=== PATIENT | male | born 1980 | race Caucasian/White ===

== ENCOUNTER 2020-04-10 19:33 | Inpatient (IN) | payer SELFPAY ==
[2020-04-10] VITALS (7 sets, daily range): BP systolic 140–172; BP diastolic 83–105; PULSE 87–141; RESP 20–26; TEMP 36.6–37.5; O2SAT 93–100
--- NOTE | ~2020-04-10 | XR_ITS ---
EXAMINATION: XR wrist LT 2V DATE: 04/11/2020 01:47 INDICATION: Left wrist pain and swelling post fall TECHNIQUE: Posteroanterior, ulnar deviation, oblique, and lateral views of the left wrist were obtain ed. COMPARISON: none FINDINGS: Alignment is normal. No fracture. Joint spaces are normal. Soft tissue swelling along the dorsal and ulnar side of the distal forearm. IMPRESSION: 1. No osseous abnormality. Reviewed, dictated and finalized at location A. IMPRESSION: 1. No osseous abnormality.
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
--- NOTE | ~2020-04-10 | XR_ITS ---
XR chest 1V portable DATE: 04/10/2020 21:56 INDICATION: Transient alteration of awareness TECHNIQUE: Portable AP chest on 04/10/2020 at 2156 hours COMPARISON: None FINDINGS: Normal heart size. No hilar or mediastinal enlargement. No pulmonary infiltrate or consolid ation, pleural effusion or pulmonary vascular congestion or pneumothorax. IMPRESSION: No active cardiopulmonary disease Reviewed, dictated and finalized at location A.
--- NOTE | 2020-04-10 19:58 | ECG_ITS ---
Measurements Intervals [place] Rate: 87 P: 58 WA: 150 QRS: 57 QRSD: 90 T: 42 QT: 373 QTc: 449 Interpretive Statements SINUS RHYTHM ST ELEVATION IN ANTERIOR LEADS- PROBABLY EARLY REPOLARIZATION BORDERLINE ECG Electronically Signed On 04-11-2020 7:11:04 CDT by Ash Griffin D.O.
--- NOTE | 2020-04-10 19:58 | PC.NURSE ---
Patient continues to flail around on stretcher despite repeated requests for him to calm down. Unable to get blood pressure at this time.
--- NOTE | 2020-04-10 20:00 | PC.NURSE ---
Patient began yelling that he did not want to live and that he had nothing to live for. He states I drink every night to get the courage to fucking kill myself. ED Charge and EDP aware.
[2020-04-10 20:03] LABS: Basophils Absolute Auto 0.1 K/mm3 (0.0-0.1); Basophils Percent Auto 0.7 % (0.2-1.2); Eosinophils Absolute Auto 0.5 K/mm3 (0-0.3); Eosinophils Percent Auto 3.4 % (0-4.4); Hematocrit 46.8 % (42.0-52.0); Immature Granulocyte Absolute 0.11 K/mm3 (0.00-0.031); Immature Granulocyte Percent A 0.7 % (0-0.5); Lymphocytes Percent Auto 26.9 % (18.3-44.2); Mean Corpuscular HGB Conc 34.2 g/dl (32-36); Mean Corpuscular Hemoglobin 31.1 pg (26-34); Mean Corpuscular Volume 90.9 fl (80-100); Mean Platelet Volume 10.5 fl (7.4-10.4); Monocytes Percent Auto 6.3 % (2.6-8.5); Neutrophils Absolute Auto 9.9 K/mm3 (1.3-6.7); Platelet Count Result 257 k/mm3 (150-375); Red Blood Count 5.15 M/mm3 (4.6-6.20)
[2020-04-10 20:13] LABS: Alanine Aminotransferase 26 U/L (4-50); Albumin Level 5.1 g/dL (3.5-5.1); Alkaline Phosphatase 81 U/L (38-126); Aspartate Amino Transferase 50 U/L (17-59); Bilirubin,Total 0.8 mg/dL (0.2-1.3); Blood Urea Nitrogen 13 mg/dL (9-20); Calcium 9.6 mg/dL (8.4-10.2); Carbon Dioxide 17 mmol/L (22-30); Chloride 107 mmol/L (98-107); Estimated CRCL calculation 81 ml/min; Estimated Glomerular Filt Rate 57; Glucose 72 mg/dL (75-110); Sodium 142 mmol/L (137-145)
[2020-04-10 20:14] LABS: Ethanol 49 mg/dL (<10)
[2020-04-10 20:18] LABS: Add Urine Microscopic? YES; Appearance Urine Clear (Clear); Bacteria Urine Trace /hpf; Bilirubin Urine Negative (Negative); Blood Urine Negative (Negative); Color Urine Amber (Yellow); Glucose Urine UA Negative (Negative); Ketones Urine Trace mg/dL (Negative); Leukocyte Esterase Ur Negative LEU/UL (Negative); Mucus Urine Few /lpf; Nitrate Urine Negative (Negative); Protein Urine 1+ mg/dL (Negative)
[2020-04-10 20:19] LABS: Specific Grav Ur 1.033 (1.001-1.035)
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
[2020-04-10 20:28] LABS: Barbiturate Screen Urine Negative (Negative); Benzodiazepines Screen Urine Negative (Negative); Cannabinoid Screen Urine Negative (Negative); Cocaine Screen Urine Negative (Negative); Methadone Screen Urine Negative (Negative); Opiate Screen Urine Negative (Negative); Phencyclidine Screen Urine Negative (Negative)
[2020-04-10] MEDS: KETAMINE HCL 500 MG/10 ML VIAL 220 MG IV PUSH (20:38)
[2020-04-10 20:42] LABS: Amphetamine Screen Urine Positive (Negative)
--- NOTE | 2020-04-10 21:38 | PC.NURSE ---
Patient to CT with assistance of wireless field technician. Accompanied by PD. Restraints were repositioned to address comfort.
[2020-04-10 22:14] LABS: Lactic Acid Reflex 1.1 mmol/L (0.7-2.1)
[2020-04-10 22:46] LABS: Creatine Kinase 1198 U/L (55-170)
[2020-04-11] VITALS (18 sets, daily range): BP systolic 114–177; BP diastolic 63–106; PULSE 62–99; RESP 12–25; TEMP 36.8; O2SAT 93–100; BMI 25.0
--- NOTE | 2020-04-11 01:02 | ADMGEN ---
This patient, Leonardo Rawls, was admitted to Intensive Care Unit-10. Patient/family oriented to hospital policies and general routines including ID bracelet, bed and alarms, visiting hours, pain management, procedures, bathroom and other care routines, personal items, smoking policy, room service/diet, and visiting hours. Valuables list has been completed. Information on how to activate the Rapid Response Team has been discussed. Patient/Family are encouraged to report perceived risks to care and to ask questions if they do not understand what they are told or what they should do.
[2020-04-11] MEDS: SODIUM CHLORIDE 0.9% IV 1,000 ML 125 ML IV CONT (01:31)
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
[2020-04-11 04:27] LABS: Blood Urea Nitrogen 15 mg/dL (9-20); Calcium 8.5 mg/dL (8.4-10.2); Carbon Dioxide 29 mmol/L (22-30); Chloride 106 mmol/L (98-107); Estimated CRCL calculation 90 ml/min; Estimated Glomerular Filt Rate > 60; Glucose 97 mg/dL (75-110); Sodium 140 mmol/L (137-145)
[2020-04-11] MEDS: hydrALAZINE HCL 20 MG/ML VIAL 10 MG IV PUSH ×2 (04:29→08:06)
[2020-04-11 05:09] LABS: Creatine Kinase 2638 U/L (55-170)
[2020-04-11] MEDS: LACTATED RINGERS 1,000 ML 999 ML IV CONT (08:05)
[2020-04-11] MEDS: SODIUM CHLORIDE 0.9% IV 1,000 ML 150 ML IV CONT ×3 (09:46→22:27)
[2020-04-11 11:57] LABS: Basophils Percent Auto 0.3 % (0.2-1.2); Eosinophils Absolute Auto 0.4 K/mm3 (0-0.3); Eosinophils Percent Auto 3.2 % (0-4.4); Hematocrit 40.9 % (42.0-52.0); Hemoglobin 13.9 g/dL (14.0-18.0); Immature Granulocyte Absolute 0.04 K/mm3 (0.00-0.031); Immature Granulocyte Percent A 0.3 % (0-0.5); Lymphocytes Absolute Auto 2.58 K/mm3 (0.9-3.2); Mean Corpuscular Volume 91.1 fl (80-100); Mean Platelet Volume 10.4 fl (7.4-10.4); Monocytes Absolute Auto 0.9 K/mm3 (0.1-0.6); Monocytes Percent Auto 6.8 % (2.6-8.5); Neutrophils Absolute Auto 9.6 K/mm3 (1.3-6.7); Neutrophils Percent Auto 70.4 % (45.5-73.1); Platelet Count Result 163 k/mm3 (150-375); Red Blood Count 4.49 M/mm3 (4.6-6.20); Red Cell Distribution Width 13.1 % (11.5-14.5); White Blood Count 13.6 K/mm3 (4.5-10.0)
[2020-04-11 12:33] LABS: Creatine Kinase 3135 U/L (55-170)
[2020-04-11] MEDS: NICOTINE (*PBKC) 14 MG PATCH 1 PATCH TRANSDERM (17:27)
[2020-04-11] MEDS: chlordiazePOXIDE 25 MG CAPSULE 50 MG PO ×2 (17:52→23:42)
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
[2020-04-11] MEDS: THIAMINE HCL 100 MG TABLET PO (20:00)
[2020-04-11] MEDS: ENOXAPARIN 40 MG/0.4 ML SYRINGE SUB-Q (20:22)
[2020-04-12] VITALS (10 sets, daily range): BP systolic 118–149; BP diastolic 75–99; PULSE 62–86; RESP 19–24; TEMP 36.5; O2SAT 97–100
[2020-04-12 04:49] LABS: Basophils Percent Auto 0.4 % (0.2-1.2); Eosinophils Absolute Auto 0.5 K/mm3 (0-0.3); Eosinophils Percent Auto 5.4 % (0-4.4); Hematocrit 38.5 % (42.0-52.0); Immature Granulocyte Absolute 0.03 K/mm3 (0.00-0.031); Immature Granulocyte Percent A 0.3 % (0-0.5); Lymphocytes Absolute Auto 2.73 K/mm3 (0.9-3.2); Lymphocytes Percent Auto 29.2 % (18.3-44.2); Mean Corpuscular HGB Conc 33.8 g/dl (32-36); Mean Corpuscular Hemoglobin 31.1 pg (26-34); Mean Corpuscular Volume 92.1 fl (80-100); Mean Platelet Volume 11.1 fl (7.4-10.4); Monocytes Absolute Auto 0.6 K/mm3 (0.1-0.6); Monocytes Percent Auto 6.7 % (2.6-8.5); Neutrophils Absolute Auto 5.4 K/mm3 (1.3-6.7); Platelet Count Result 157 k/mm3 (150-375); Red Blood Count 4.18 M/mm3 (4.6-6.20); Red Cell Distribution Width 12.9 % (11.5-14.5); White Blood Count 9.4 K/mm3 (4.5-10.0)
[2020-04-12 05:07] LABS: Albumin Level 3.2 g/dL (3.5-5.1); Blood Urea Nitrogen 9 mg/dL (9-20); Calcium 7.8 mg/dL (8.4-10.2); Carbon Dioxide 26 mmol/L (22-30); Chloride 109 mmol/L (98-107); Creatine Kinase 1582 U/L (55-170); Estimated CRCL calculation 120 ml/min; Estimated Glomerular Filt Rate > 60; Glucose 88 mg/dL (75-110); Phosphorus 3.1 mg/dL (2.5-4.5); Potassium 3.9 mmol/L (3.4-5.0); Sodium 137 mmol/L (137-145)
[2020-04-12] MEDS: chlordiazePOXIDE 25 MG CAPSULE 50 MG PO ×3 (05:11→18:50)
[2020-04-12] MEDS: SODIUM CHLORIDE 0.9% IV 1,000 ML 150 ML IV CONT ×3 (05:13→18:50)
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
--- NOTE | 2020-04-12 07:34 | P.CDI_ITS ---
CDI Query Clarification Request - Acute encephalopathy, unspecified, seems secondary to amphetamine use has been documented. Please further specify type of encephalopathy: * Metabolic * Toxic * Hypertensive * Hepatic * Other * Unable to determine <Che Guzman RN - Last Filed: 04/12/20 07:43>
--- NOTE | 2020-04-12 07:34 | WPDCDIQUERY2 ---
CDI Query Clarification Request - Acute encephalopathy, unspecified, seems secondary to amphetamine use has been documented. Please further specify type of encephalopathy: Metabolic Toxic Hypertensive Hepatic Other Unable to determine <Che Guzman RN - Last Filed: 04/12/20 07:43>
[2020-04-12] MEDS: THIAMINE HCL 100 MG TABLET PO (09:11)
[2020-04-12] MEDS: FUROSEMIDE INJ 40 MG/4 ML VIAL 20 MG IV PUSH (09:11)
[2020-04-12] MEDS: NICOTINE (*PBKC) 14 MG PATCH 1 PATCH TRANSDERM (11:55)
[2020-04-12 12:11] LABS: Creatine Kinase 1539 U/L (55-170)
[2020-04-12] MEDS: ENOXAPARIN 40 MG/0.4 ML SYRINGE SUB-Q (21:35)
[2020-04-13] VITALS (8 sets, daily range): BP systolic 144–158; BP diastolic 85–103; PULSE 59–87; RESP 16–20; TEMP 36.6–36.8; O2SAT 95–100
[2020-04-13] MEDS: chlordiazePOXIDE 25 MG CAPSULE 50 MG PO ×4 (00:18→18:28)
[2020-04-13] MEDS: SODIUM CHLORIDE 0.9% IV 1,000 ML 150 ML IV CONT ×4 (02:06→22:16)
[2020-04-13 04:56] LABS: Blood Urea Nitrogen 10 mg/dL (9-20); Calcium 7.8 mg/dL (8.4-10.2); Carbon Dioxide 25 mmol/L (22-30); Chloride 109 mmol/L (98-107); Estimated CRCL calculation 120 ml/min; Estimated Glomerular Filt Rate > 60; Glucose 90 mg/dL (75-110); Potassium 3.9 mmol/L (3.4-5.0); Sodium 137 mmol/L (137-145)
[2020-04-13 05:01] LABS: Creatine Kinase 2413 U/L (55-170)
[2020-04-13] MEDS: NICOTINE (*PBKC) 14 MG PATCH 1 PATCH TRANSDERM (07:59)
[2020-04-13] MEDS: THIAMINE HCL 100 MG TABLET PO (07:59)
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
[2020-04-13] MEDS: FUROSEMIDE INJ 40 MG/4 ML VIAL 20 MG IV PUSH (10:43)
[2020-04-13 14:19] LABS: Creatine Kinase 2283 U/L (55-170)
[2020-04-13] MEDS: ENOXAPARIN 40 MG/0.4 ML SYRINGE SUB-Q (20:42)
--- NOTE | 2020-04-13 21:04 | PC.NURSE ---
04/13/202049 Pt upset that nurse is getting vitals and doing assessment. States Now that I'm awake I may as well stay up! . Explain that I want to obtain an assessment and then I can minimize disruptions. Pt states he understands. Offer to walk patient since he is awake and pt refuses stating Im going back to sleep .
[2020-04-14] VITALS (7 sets, daily range): BP systolic 143–166; BP diastolic 90–94; PULSE 51–89; RESP 16–20; TEMP 36.2–36.6; O2SAT 96–100
[2020-04-14] MEDS: chlordiazePOXIDE 25 MG CAPSULE 50 MG PO ×5 (00:25→23:21)
[2020-04-14] MEDS: SODIUM CHLORIDE 0.9% IV 1,000 ML 150 ML IV CONT ×3 (04:42→17:56)
[2020-04-14 05:10] LABS: Blood Urea Nitrogen 9 mg/dL (9-20); Calcium 8.1 mg/dL (8.4-10.2); Carbon Dioxide 27 mmol/L (22-30); Chloride 107 mmol/L (98-107); Creatine Kinase 1244 U/L (55-170); Estimated CRCL calculation 120 ml/min; Estimated Glomerular Filt Rate > 60; Glucose 92 mg/dL (75-110); Sodium 138 mmol/L (137-145)
[2020-04-14] MEDS: NICOTINE (*PBKC) 14 MG PATCH 1 PATCH TRANSDERM (09:31)
[2020-04-14] MEDS: THIAMINE HCL 100 MG TABLET PO (09:31)
[2020-04-14] MEDS: FUROSEMIDE INJ 40 MG/4 ML VIAL 20 MG IV PUSH ×2 (11:09→18:21)
[2020-04-14 12:13] LABS: Creatine Kinase 1103 U/L (55-170)
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
[2020-04-14] MEDS: ENOXAPARIN 40 MG/0.4 ML SYRINGE SUB-Q (20:34)
[2020-04-15] MEDS: SODIUM CHLORIDE 0.9% IV 1,000 ML 150 ML IV CONT (00:37)
[2020-04-15 04:59] LABS: Creatine Kinase 634 U/L (55-170)
[2020-04-15 08:00] VITALS: BP 156/98; PULSE 60; RESP 16; TEMP 36.6; O2SAT 100
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
--- NOTE | 2020-04-15 11:53 | PC.NURSE ---
At 0830, PCT sitting with pt notified RN that Dr Reno was bedside, pt had asked MD if the police was being called. MD advised the pt that he didn't know. left the pts room and pt made a statement to PCT Joslyn that if the police come I will say I'm suicidal and will do harm to myself to get to [place]. He continued to make statements to the PCT with the same information repetitively.
--- NOTE | 2020-04-15 12:33 | PC.NURSE ---
04/15/20 @ 1040 Patient discharged and released into police custody. Patient states understanding of discharge instructions and aware of discharge medications. Belongings sent with patient included clothing, money clip/wallet, and cell phone.
== END 2020-04-15 10:40 | DRG 776 ==
LOC: ANHED 23:44 → ANHICU 23:59
PROVIDERS: Family Medicine; Internal Medicine; Admitting Provider Internal Medicine; Emergency Provider Emergency Medicine; Visit Provider Internal Medicine
DX: F15.129 Other stimulant abuse with intoxication, unspecified (principal); G92 Toxic encephalopathy; G93.49 Other encephalopathy; T79.6XXA Traumatic ischemia of muscle, initial encounter; W86.8XXA Exposure to other electric current, initial encounter; Y35.831A Legal intervention involving a conducted energy device, law enforcement official injured, initial encounter; R45.851 Suicidal ideations; F17.210 Nicotine dependence, cigarettes, uncomplicated; I10 Essential (primary) hypertension; F32.9 Major depressive disorder, single episode, unspecified; D72.829 Elevated white blood cell count, unspecified; N17.9 Acute kidney failure, unspecified; E86.0 Dehydration
CPT/HCPCS: 36415; 51701; 70450; 71045; 73060; 73100; 80048; 80053; 80069; 80307; 81001; 82550; 83605; 84443; 85025; 93005; 96361; 96374; 96375; 96376; 99285; A9270; G0378; G0379; J0360; J1650; J1940; J2060; J7030; J7120